=== PATIENT | male | born 1960 | race Asian ===

== ENCOUNTER 2017-03-07 08:37 | Day surgery (SDC) | payer OTHER ==
[2017-03-06 13:25] VITALS: BMI 23.7
[2017-03-07] MEDS ORDERED: PROPOFOL 20 ML ONE ×2 (11:14)
[2017-03-07 11:58] VITALS: TEMP 98
[2017-03-07 12:49] VITALS: BP 140/72; PULSE 67
--- NOTE | 2017-03-08 13:20 | PATH ---
Surgical Pathology Report Patient Name: VANDANA ROSS [facility]. Rec. #: [id number] /Age/Gender: 1960 (Age: 56) / M Account: [id number] Location: [facility]-ENDOSCOPY Taken: 03/07/2017 Received: 03/07/2017 Reported: 03/08/2017 Physicians: Yamil Brown M.D. Specimen(s) Received A: BX DISTAL TRANSVERSE COLON POLYP B: POLYP SIGMOID Clinical History History of colon polyp Diverticulosis, polyps Final Diagnosis A. COLON, DISTAL TRANSVERSE, POLYP, BIOPSY: POLYPOID FRAGMENT OF COLONIC MUCOSA WITH FOCAL SURFACE HYPERPLASTIC CHANGE. B. COLON, SIGMOID, POLYP, POLYPECTOMY: CONSISTENT WITH INFLAMMATORY-TYPE POLYP. NO DYSPLASIA/ADENOMA IDENTIFIED. Electronically Signed John Glynn M.D. Gross Description A. Received in formalin, labeled "biopsy distal transverse colon polyp" is a mcdaniel, irregular portion of soft tissue measuring 0.2 cm in greatest dimension. The specimen is submitted in toto in one cassette. B. Received in formalin, labeled "sigmoid polyp" are 3 mcdaniel, irregular portions of soft tissue measuring 0.2 cm in greatest dimension. The specimens are submitted in toto in one cassette. [facility]/03/07/2017 [facility]/03/07/2017
== END 2017-03-07 12:40 | disposition home or self-care (01) ==
LOC: JASU-ENDO 08:37
PROVIDERS: ATTEND Internal Medicine Gastroenterology
PROC: 0DBL8ZX Excision of Transverse Colon, Via Natural or Artificial Opening Endoscopic, Diagnostic (ICD-10-PCS; 2017-03-07)
PROC: 0DBN8ZX Excision of Sigmoid Colon, Via Natural or Artificial Opening Endoscopic, Diagnostic (ICD-10-PCS; principal; 2017-03-07 09:30)
DX: Z86.010 Personal history of colon polyps (principal); D12.5 Benign neoplasm of sigmoid colon; D12.3 Benign neoplasm of transverse colon
CPT/HCPCS: 88305-TC

== ENCOUNTER 2017-09-26 07:15 | Day surgery (SDC) | payer OTHER ==
[2017-09-25 14:36] VITALS: BMI 24.3
[2017-09-26 08:20] LABS: INR 0.92 (0.82-1.09); PROTHROMBIN TIME (PATIENT) 10.4 SEC (9.98-11.88)
[2017-09-26 08:23] LABS: BASO % 0.9 % (0-2.0); EOS % 4.4 % (0-4.5); HEMATOCRIT 38.1 % (35.4-49); HEMOGLOBIN 12.9 GM/dL (11.7-16.9); MEAN CELL VOLUME 79.4 fl (80-96); MEAN PLT VOLUME 8.9 fl (7.5-11.1); NEUT % 52.7 % (42.8-82.8); PLATELET COUNT 156 K/MM3 (134-434); RDW 15.2 % (11.9-15.9); WHITE BLOOD COUNT 5.8 K/mm3 (4.0-10.0)
[2017-09-26] MEDS ORDERED: ONDANSETRON 4 MG/2 ML VIAL ONE (15:58)
[2017-09-26] MEDS ORDERED: oxyCODONE HCL 5 MG TABLET ONE (16:15)
--- NOTE | 2017-09-26 17:35 | HP ---
CHIEF COMPLAINT: post renal biopsy hematoma Renal: Dr Branch HISTORY OF PRESENT ILLNESS: This is a 56 yo M with PMH of unexplained nephrotic syndrome, HTN and NIDDM2, who presents POD0 s/p L kidney biopsy de to hematoma. Patient currently complains of L flank pain 12/24, alleviated by recently administered percocet. he states his initial post op nausea resolved with zofran. he denies cp, dizziness, sob. He denies abd pain> he has no hisptory of bleeding or clotting d /o. he has not taken his daily asa for a week and takes no other a/c. Recent Travel: denies PAST MEDICAL HISTORY: as above PAST SURGICAL HISTORY: denies Social History: lives with Smoking: denies Alcohol:denies Drugs: denies Family History: denies hx of renal disease or bleeding d/o Allergies No Known Allergies Allergy (Verified 09/26/17 08:06) HOME MEDICATIONS: Home Medications Medication Instructions Recorded Amlodipine Besylate [Norvasc -] 10 mg PO DAILY 03/06/17 Aspirin [Aspirin EC] 81 mg PO DAILY 03/06/17 Carvedilol [Coreg -] 25 mg PO BID 03/06/17 Fenofibrate Nanocrystallized 145 mg PO DAILY 03/06/17 [Fenofibrate] Isosorbide Mononitrate [Isosorbide 30 mg PO DAILY 03/06/17 Mononitrate ER] Ergocalciferol (Vitamin D2) 2,000 unit PO DAILY 09/26/17 [Vitamin D2] Glyburide 5 mg PO DAILY 09/26/17 Linagliptin [Tradjenta] 5 mg PO DAILY 09/26/17 Losartan Potassium [Cozaar] 100 mg PO DAILY 09/26/17 [place]-3 Acid Ethyl Esters 1 gm PO DAILY 09/26/17 REVIEW OF SYSTEMS CONSTITUTIONAL: Absent: fever, chills, diaphoresis HEENT: Absent: rhinorrhea, nasal congestion, throat pain CARDIOVASCULAR: Absent: chest pain, syncope, palpitations, irregular heart rate, lightheadedness , peripheral edema RESPIRATORY: Absent: cough, shortness of breath GASTROINTESTINAL: Absent: abdominal pain, abdominal distension, vomiting, diarrhea, constipation, melena, hematochezia GENITOURINARY: Absent: dysuria MUSCULOSKELETAL: Absent: myalgia, arthralgia SKIN: Absent: rash, itching, pallor HEMATOLOGIC/IMMUNOLOGIC: Absent: easy bleeding, easy bruising ENDOCRINE: Absent: unexplained weight gain, unexplained weight loss NEUROLOGIC: Absent: headache, focal weakness or paresthesias PSYCHIATRIC: Absent: anxiety, depression PHYSICAL EXAMINATION Vital Signs - 24 hr 09/26/17 09/26/17 09/26/17 08:02 08:06 10:23 Temperature 98.1 F Pulse Rate 61 63 Pulse Rate [ Left Upper Arm] Respiratory 16 13 Rate Respiratory Rate [Left Upper Arm] Blood Pressure 143/83 176/96 Blood Pressure [Left Upper Arm ] O2 Sat by Pulse 99 100 Oximetry (%) O2 Sat by Pulse Oximetry (%) [ Left Upper Arm] 09/26/17 09/26/17 09/26/17 10:33 10:39 10:49 Temperature Pulse Rate 62 Pulse Rate [ 67 62 Left Upper Arm] Respiratory 14 Rate Respiratory 15 13 Rate [Left Upper Arm] Blood Pressure 159/93 Blood Pressure 149/94 149/94 [Left Upper Arm ] O2 Sat by Pulse 100 Oximetry (%) O2 Sat by Pulse 100 100 Oximetry (%) [ Left Upper Arm] 09/26/17 09/26/17 09/26/17 10:59 11:02 11:23 Temperature Pulse Rate 65 68 Pulse Rate [ 66 Left Upper Arm] Respiratory 15 16 Rate Respiratory 15 Rate [Left Upper Arm] Blood Pressure 139/88 150/100 Blood Pressure 127/83 [Left Upper Arm ] O2 Sat by Pulse 100 97 Oximetry (%) O2 Sat by Pulse 100 Oximetry (%) [ Left Upper Arm] 09/26/17 09/26/17 09/26/17 11:34 11:52 12:10 Temperature Pulse Rate 61 67 64 Pulse Rate [ Left Upper Arm] Respiratory 16 16 16 Rate Respiratory Rate [Left Upper Arm] Blood Pressure 146/86 147/93 141/86 Blood Pressure [Left Upper Arm ] O2 Sat by Pulse Oximetry (%) O2 Sat by Pulse Oximetry (%) [ Left Upper Arm] 09/26/17 09/26/17 09/26/17 12:14 12:43 14:06 Temperature Pulse Rate 64 61 72 Pulse Rate [ Left Upper Arm] Respiratory 16 16 16 Rate Respiratory Rate [Left Upper Arm] Blood Pressure 141/86 139/81 164/94 Blood Pressure [Left Upper Arm ] O2 Sat by Pulse 99 Oximetry (%) O2 Sat by Pulse Oximetry (%) [ Left Upper Arm] 09/26/17 09/26/17 09/26/17 14:10 14:22 14:42 Temperature Pulse Rate 72 70 70 Pulse Rate [ Left Upper Arm] Respiratory 16 16 16 Rate Respiratory Rate [Left Upper Arm] Blood Pressure 164/94 158/98 170/82 Blood Pressure [Left Upper Arm ] O2 Sat by Pulse Oximetry (%) O2 Sat by Pulse Oximetry (%) [ Left Upper Arm] 09/26/17 09/26/17 15:00 16:07 Temperature Pulse Rate 70 82 Pulse Rate [ Left Upper Arm] Respiratory 16 16 Rate Respiratory Rate [Left Upper Arm] Blood Pressure 170/82 154/98 Blood Pressure [Left Upper Arm ] O2 Sat by Pulse Oximetry (%) O2 Sat by Pulse Oximetry (%) [ Left Upper Arm] GENERAL: Awake, alert, and fully oriented, in no acute distress. HEAD: Normal with no signs of trauma. EYES: Pupils equal, round and reactive to light, extraocular movements intact, sclera anicteric, conjunctiva clear. No lid lag. EARS, NOSE, THROAT: Moist mucous membranes. NECK: supple without JVD LUNGS: Breath sounds equal, clear to auscultation bilaterally. HEART: Regular rate and rhythm, normal S1 and S2 without murmur, rub or gallop. ABDOMEN: Soft, nontender, mildly distended, normoactive bowel sounds, no guarding, no rebound, no masses. MUSCULOSKELETAL: L CVA tenderness. UPPER EXTREMITIES: 2+ pulses, warm, well-perfused. No cyanosis. No clubbing. No peripheral edema. LOWER EXTREMITIES: 2+ pulses, warm, well-perfused. No calf tenderness. No peripheral edema. NEUROLOGICAL: Cranial nerves II-XII grossly intact. Normal speech. PSYCHIATRIC: Cooperative. Good eye contact. Appropriate mood and affect. SKIN: Warm, dry Laboratory Results - last 24 hr 09/26/17 09/26/17 07:26 07:26 WBC 5.8 RBC 4.80 Hgb 12.9 Hct 38.1 MCV 79.4 L MCH 27.0 MCHC 34.0 RDW 15.2 Plt Count 156 MPV 8.9 Neutrophils % 52.7 Lymphocytes % 34.0 Monocytes % 8.0 Eosinophils % 4.4 Basophils % 0.9 PT with INR 10.40 INR 0.92 ASSESSMENT/PLAN: This is a 56 yo M with PMH of unexplained nephrotic syndrome, HTN and NIDDM2, who presents POD0 s/p L kidney biopsy de to hematoma. L retroperitoneal hematoma s/p L kidney biopsy -CBC 7 pm, 7 am -zofran prn for nausea -tylenol po, oxycodone po for pain management -renal consult Dr Branch HTN -resume losartan, imdur, coreg NIDDM -hold po meds -BGM, ISS Diabetic diet SCDs Dispo: obs m/s Problem List - Problem (1) Proteinuria Code(s): R80.9 - PROTEINURIA, UNSPECIFIED (2) Diabetes Code(s): E11.9 - TYPE 2 DIABETES MELLITUS WITHOUT COMPLICATIONS (3) HTN (hypertension) Code(s): I10 - ESSENTIAL (PRIMARY) HYPERTENSION (4) Hemorrhage following kidney biopsy Code(s): N99.820 - POSTPROC HEMOR OF A SYS ORG FOLLOWING A SYS PROCEDURE Visit type - Emergency Visit Emergency Visit: No - New Patient This patient is new to me today: Yes Date on this admission: 09/26/17 - Critical Care Critical Care patient: No
[2017-09-26] MEDS ORDERED: ACETAMINOPHEN 325 MG TABLET (FP) PO PRN (18:23)
[2017-09-26] MEDS ORDERED: oxyCODONE HCL 5 MG TABLET PO PRN (18:24)
[2017-09-26] MEDS ORDERED: ONDANSETRON 4 MG/2 ML VIAL IVPUSH PRN (18:25)
[2017-09-26] MEDS ORDERED: SODIUM CHLORIDE 1,000 ML IV SCH (18:30)
--- NOTE | 2017-09-26 19:07 | PN ---
Teaching Attending Note Name of Resident: Iris Aviles ATTENDING PHYSICIAN STATEMENT I saw and evaluated the patient. I reviewed the resident's note and discussed the case with the resident. I agree with the resident's findings and plan as documented. SUBJECTIVE: OBJECTIVE: Vital Signs Period Temp Pulse Resp BP Sys/Arcos Pulse Ox Last 24 Hr 98.1 F 61-82 13-16 127-176/81-100 97-100 Laboratory Tests 09/26/17 09/26/17 07:26 07:26 WBC 5.8 RBC 4.80 Hgb 12.9 Hct 38.1 MCV 79.4 L MCH 27.0 MCHC 34.0 RDW 15.2 Plt Count 156 MPV 8.9 Neutrophils % 52.7 Lymphocytes % 34.0 Monocytes % 8.0 Eosinophils % 4.4 Basophils % 0.9 PT with INR 10.40 INR 0.92 Home Medications Medication Instructions Recorded Amlodipine Besylate [Norvasc -] 10 mg PO DAILY 03/06/17 Aspirin [Aspirin EC] 81 mg PO DAILY 03/06/17 Carvedilol [Coreg -] 25 mg PO BID 03/06/17 Fenofibrate Nanocrystallized 145 mg PO DAILY 03/06/17 [Fenofibrate] Isosorbide Mononitrate [Isosorbide 30 mg PO DAILY 03/06/17 Mononitrate ER] Ergocalciferol (Vitamin D2) 2,000 unit PO DAILY 09/26/17 [Vitamin D2] Glyburide 5 mg PO DAILY 09/26/17 Linagliptin [Tradjenta] 5 mg PO DAILY 09/26/17 Losartan Potassium [Cozaar] 100 mg PO DAILY 09/26/17 [place]-3 Acid Ethyl Esters 1 gm PO DAILY 09/26/17 ASSESSMENT AND PLAN:
--- NOTE | 2017-09-26 19:37 | HP ---
CHIEF COMPLAINT: L retroperitoneal hematoma PCP: Dr. aMc Nephro: Dr. Logan HISTORY OF PRESENT ILLNESS: 56yo M with PMH signficant for NIDDM, HTN, and nephrotic syndrome of unclear etiology for past 2-3months who is POD0 s/p L renal biopsy c/b hematoma. Post- procedure patient developed non-radiating L flank pain with 6-7/10 intensity as well as nausea. His symptoms were resolved with Zofran and oxycodone. He is currently asymptomatic. Denies any fever, chills, dysuria, n/v, abdominal pain, or chest pain. Patient denies any history of prolonged bleeding or family history of bleeding diasthesis. Patient on home ASA, which he has not taken for past week. Recent Travel: none PAST MEDICAL HISTORY: NIDDM HTN PAST SURGICAL HISTORY: none Social History: Smoking: never Alcohol: denies Drugs: denies Family History: non-contributory Allergies: NKDA HOME MEDICATIONS: Home Medications Medication Instructions Recorded Amlodipine Besylate [Norvasc -] 10 mg PO DAILY 03/06/17 Aspirin [Aspirin EC] 81 mg PO DAILY 03/06/17 Carvedilol [Coreg -] 25 mg PO BID 03/06/17 Fenofibrate Nanocrystallized 145 mg PO DAILY 03/06/17 [Fenofibrate] Isosorbide Mononitrate [Isosorbide 30 mg PO DAILY 03/06/17 Mononitrate ER] Ergocalciferol (Vitamin D2) 2,000 unit PO DAILY 09/26/17 [Vitamin D2] Glyburide 5 mg PO DAILY 09/26/17 Linagliptin [Tradjenta] 5 mg PO DAILY 09/26/17 Losartan Potassium [Cozaar] 100 mg PO DAILY 09/26/17 [place]-3 Acid Ethyl Esters 1 gm PO DAILY 09/26/17 REVIEW OF SYSTEMS CONSTITUTIONAL: Absent: fever, chills, diaphoresis, generalized weakness, malaise, loss of appetite, weight change HEENT: Absent: rhinorrhea, nasal congestion, throat pain, throat swelling, difficulty swallowing, mouth swelling, ear pain, eye pain, visual changes CARDIOVASCULAR: Absent: chest pain, syncope, palpitations, irregular heart rate, lightheadedness , peripheral edema RESPIRATORY: Absent: cough, shortness of breath, dyspnea with exertion, orthopnea, wheezing, stridor, hemoptysis GASTROINTESTINAL: Absent: abdominal pain, abdominal distension, nausea, vomiting, diarrhea, constipation, melena, hematochezia GENITOURINARY: Absent: dysuria, frequency, urgency, hesitancy, hematuria, flank pain, genital pain MUSCULOSKELETAL: Absent: myalgia, arthralgia, joint swelling, back pain, neck pain SKIN: Absent: rash, itching, pallor HEMATOLOGIC/IMMUNOLOGIC: Absent: easy bleeding, easy bruising, lymphadenopathy, frequent infections ENDOCRINE: Absent: unexplained weight gain, unexplained weight loss, heat intolerance, cold intolerance NEUROLOGIC: Absent: headache, focal weakness or paresthesias, dizziness, unsteady gait, seizure, mental status changes, bladder or bowel incontinence PSYCHIATRIC: Absent: anxiety, depression, suicidal or homicidal ideation, hallucinations. PHYSICAL EXAMINATION Last Vital Signs Temp Pulse Resp BP Pulse Ox 98.1 F 82 16 154/98 99 09/26/17 08:02 09/26/17 16:07 09/26/17 18:18 09/26/17 16:07 09/26/17 18:18 GENERAL: pleasant, aaox3, lying comfortably in bed, in NAD HEAD: Normal with no signs of trauma. EYES: PERRL, EOMI, sclera anicteric, conjunctiva clear ENT:oropharynx clear without exudates, mmm NECK: supple, no cervical LAD LUNGS: CTAB HEART: rrr, normal s1/s2, no JVD ABDOMEN: Soft, NTND, normoactive BS : L flank bandage c/d/i, no CVA tenderness UPPER EXTREMITIES: 2+ radial pulses, warm, well-perfused. No cyanosis. No clubbing. No peripheral edema. LOWER EXTREMITIES: 2+ DP pulses, warm, well-perfused. No calf tenderness. No peripheral edema. NEUROLOGICAL: Cranial nerves II-XII intact. Normal speech. Gait not assessed Laboratory Results - last 24 hr 09/26/17 09/26/17 07:26 07:26 WBC 5.8 RBC 4.80 Hgb 12.9 Hct 38.1 MCV 79.4 L MCH 27.0 MCHC 34.0 RDW 15.2 Plt Count 156 MPV 8.9 Neutrophils % 52.7 Lymphocytes % 34.0 Monocytes % 8.0 Eosinophils % 4.4 Basophils % 0.9 PT with INR 10.40 INR 0.92 Active Medications Acetaminophen (Tylenol -) 650 mg PO Q4H PRN PRN Reason: PAIN LEVEL 1-5 Amlodipine Besylate (Norvasc -) 10 mg PO DAILY [facility] Carvedilol (Coreg -) 25 mg PO BID [facility] Cholecalciferol (Vitamin D3 -) 2,000 unit PO DAILY [facility] Fenofibric Acid (Trilipix -) 135 mg PO DAILY [facility] Glyburide (Diabeta -) 5 mg PO BIDAC [facility] Isosorbide Mononitrate (Imdur -) 30 mg PO DAILY [facility] Losartan Potassium (Losartan Potassium) 100 mg PO DAILY [facility] Non-Formulary Medication (Linagliptin [Tradjenta]) 5 mg PO HS [facility] [id number]-[id number] Ethyl Esters (Lovaza -) 2 gm PO BID [facility] Ondansetron HCl (Zofran Injection) 4 mg IVPUSH Q4H PRN PRN Reason: NAUSEA AND/OR VOMITING Oxycodone HCl (Roxicodone -) 10 mg PO Q4H PRN PRN Reason: PAIN LEVEL 6-10 ASSESSMENT/PLAN: 56yo M with PMH of NIDDM, HTN, and nephrotic syndrome of unknown etiology who is POD0 s/p renal biopsy and found to have to L retroperitoneal hematoma. #L renal hematoma s/p biopsy -Renal consult (Dr. Branch) -Serial H&H -UA in AM -Zofran PRN for nausea -Tylenol 650mg/Oxy 10mg Q4H PRN -Hold ASA #HTN - resume home meds #NIDDM - resume home meds -BGM, ISS ACHS #FEN: PO fluids / lytes wnl / Renal, DM diet #PPX: SCDs (AC c/i) #DISPO: obs m/s d/w Dr. Quentin Aviles MD PGY1 - Internal Medicine Visit type - Emergency Visit Emergency Visit: No - New Patient This patient is new to me today: Yes Date on this admission: 09/27/17 - Critical Care Critical Care patient: No Hospitalist Screening - Colonoscopy Questionnaire Colonoscopy Questionnaire: Colonoscopy Questionnaire - Patient: 50 - 75 years old and never had a screening colonoscopy: Yes History of colon or rectal polyps, or CA: Unknown History of IBD, Crohn's disease or UC: Unknown History of abdominal radiation therapy as a child: Unknown - Relative: 1 with colon or rectal CA, or polyps at age 60 or younger: Unknown Colon or rectal CA diagnosed at age 45 or younger: Unknown Multiple relatives with colon or rectal CA: Unknown - Outcome: Screening Result: Positive Screen
[2017-09-26 20:17] LABS: HEMATOCRIT 35.9 % (35.4-49); HEMOGLOBIN 12.5 GM/dL (11.7-16.9); MCH 27.6 pg (25.7-33.7); MEAN CELL VOLUME 78.8 fl (80-96); MEAN PLT VOLUME 8.9 fl (7.5-11.1); PLATELET COUNT 166 K/MM3 (134-434); RBC 4.55 M/mm3 (4.00-5.60); RDW 15.3 % (11.9-15.9); WHITE BLOOD COUNT 10.6 K/mm3 (4.0-10.0)
[2017-09-26] MEDS ORDERED: INSULIN (NOVOLOG) ASPART 100 UNITS/ML 10ML VIAL ONE (21:35)
[2017-09-26] MEDS: FENOFIBRIC ACID 135 MG CAP PO SCH (21:44)
[2017-09-26] MEDS: glyBURIDE 5 MG TABLET (UD) PO SCH (21:44)
[2017-09-26] MEDS: INSULIN SLIDING SCALE (NOVOLOG) 1 VIAL SQ SCH (21:44)
[2017-09-26] MEDS: amLODIPine BESYLATE 10 MG TABLET (FP) PO SCH (21:44)
[2017-09-26] MEDS: CARVEDILOL 25 MG TABLET (FP) PO SCH (21:44)
[2017-09-26] MEDS: OMEGA-3 ACID ETHYL ESTERS (FATTY-ACIDS) 1 GM CAPSULE (FP) PO SCH (21:44)
[2017-09-27] MEDS: INSULIN SLIDING SCALE (NOVOLOG) 1 VIAL SQ SCH ×2 (06:33→13:15)
[2017-09-27] MEDS: glyBURIDE 5 MG TABLET (UD) PO SCH (06:33)
[2017-09-27 07:09] LABS: URINE APPEARANCE CLEAR; URINE BILIRUBIN NEGATIVE (NEGATIVE); URINE BLOOD NEGATIVE (NEGATIVE); URINE COLOR LTYELLOW; URINE GLUCOSE (UA) 3+ (NEGATIVE); URINE KETONE NEGATIVE (NEGATIVE); URINE LEUK ESTERASE NEGATIVE (NEGATIVE); URINE NITRITE NEGATIVE (NEGATIVE); URINE UROBILINOGEN NEGATIVE mg/dL (0.2-1.0)
[2017-09-27 07:18] LABS: URINE PROTEIN 3+ (NEGATIVE)
[2017-09-27 07:24] LABS: EPI CELLS RARE /HPF (FEW); URINE HYALINE CAST 2 /lpf; URINE MUCUS RARE
[2017-09-27 07:56] LABS: ANION GAP 10 (8-16); BLOOD UREA NITROGEN 16 mg/dL (7-18); CALCIUM 7.5 mg/dL (8.5-10.1); CHLORIDE 102 mmol/L (98-107); CO2 27 mmol/L (21-32); CREATININE 2.1 mg/dL (0.7-1.3); GLUCOSE,RANDOM 169 mg/dL (74-106); POTASSIUM 3.1 mmol/L (3.5-5.1); SODIUM 139 mmol/L (136-145)
[2017-09-27] MEDS: CARVEDILOL 25 MG TABLET (FP) PO SCH (09:21)
[2017-09-27] MEDS: amLODIPine BESYLATE 10 MG TABLET (FP) PO SCH (09:23)
[2017-09-27] MEDS: OMEGA-3 ACID ETHYL ESTERS (FATTY-ACIDS) 1 GM CAPSULE (FP) PO SCH (09:29)
[2017-09-27] MEDS: FENOFIBRIC ACID 135 MG CAP PO SCH (09:29)
[2017-09-27] MEDS ORDERED: LOSARTAN POTASSIUM 50 MG TABLET (FP) PO SCH (10:00)
[2017-09-27] MEDS ORDERED: POTASSIUM CHLORIDE ORAL LIQUID 20 MEQ/15 ML PO SCH (10:00)
[2017-09-27] MEDS ORDERED: ISOSORBIDE MONONITRATE 30 MG TAB.SR.24H (FP) PO SCH (10:00)
[2017-09-27] MEDS ORDERED: CHOLECALCIFEROL (VITAMIN D3) 1,000 UNIT TABLET (FP) PO SCH (10:00)
[2017-09-27 11:09] VITALS: BP 153/80; PULSE 81; TEMP 98.7
[2017-09-27 11:23] LABS: HEMATOCRIT 32.4 % (35.4-49); HEMOGLOBIN 11.4 GM/dL (11.7-16.9); MCHC 35.1 g/dl (32.0-35.9); MEAN PLT VOLUME 8.4 fl (7.5-11.1); PLATELET COUNT 133 K/MM3 (134-434); RBC 4.05 M/mm3 (4.00-5.60); RDW 15.7 % (11.9-15.9); WHITE BLOOD COUNT 10.2 K/mm3 (4.0-10.0)
--- NOTE | 2017-09-27 12:05 | CONSULT ---
Consult - text type - Consultation Consultation Note: Renal Consult for CKD and post biopsy hematoma This is a 56 year old gentleman with PMhx of CKD, Hypertension, DM, Nephrotic range proteinuria s/p renal biopsy complicated by perinephric hematoma. Pt awake and alert. Denies any flank pain or gross hematuria. No N/V. NO fever, chills. No Abd pain. Feels well. Would like to go home. PMhx: as above [place]: NKDA Family Hx: NC Social Hx: No T/A/D ROS: As per HPI Home Medications Medication Instructions Recorded Amlodipine Besylate [Norvasc -] 10 mg PO DAILY 03/06/17 Aspirin [Aspirin EC] 81 mg PO DAILY 03/06/17 Carvedilol [Coreg -] 25 mg PO BID 03/06/17 Fenofibrate Nanocrystallized 145 mg PO DAILY 03/06/17 [Fenofibrate] Isosorbide Mononitrate [Isosorbide 30 mg PO DAILY 03/06/17 Mononitrate ER] Ergocalciferol (Vitamin D2) 2,000 unit PO DAILY 09/26/17 [Vitamin D2] Glyburide 5 mg PO DAILY 09/26/17 Linagliptin [Tradjenta] 5 mg PO DAILY 09/26/17 Losartan Potassium [Cozaar] 100 mg PO DAILY 09/26/17 [place]-3 Acid Ethyl Esters 1 gm PO DAILY 09/26/17 Vital Signs Temperature 98.7 F 09/27/17 09:00 Pulse Rate 81 09/27/17 09:00 Respiratory Rate 16 09/27/17 09:00 Blood Pressure 153/80 09/27/17 09:00 O2 Sat by Pulse Oximetry (%) 98 09/27/17 08:00 Intake & Output 09/24/17 09/25/17 09/26/17 09/27/17 23:59 23:59 23:59 23:59 Output Total 300 Balance -300 Weight 66.224 kg NAD awake and alert RRR CTA no LE edema no flank hematoma or tenderness CBC, BMP 09/27/17 06:20 09/27/17 06:20 Current Medications Acetaminophen (Tylenol -) 650 mg PO Q4H PRN PRN Reason: PAIN LEVEL 1-5 Last Admin: 09/27/17 09:54 Dose: 650 mg Amlodipine Besylate (Norvasc -) 10 mg PO DAILY [facility] Last Admin: 09/27/17 09:23 Dose: 10 mg Carvedilol (Coreg -) 25 mg PO BID [facility] Last Admin: 09/27/17 09:21 Dose: 25 mg Cholecalciferol (Vitamin D3 -) 2,000 unit PO DAILY [facility] Last Admin: 09/27/17 09:21 Dose: 2,000 unit Fenofibric Acid (Trilipix -) 135 mg PO DAILY [facility] Last Admin: 09/27/17 09:29 Dose: 135 mg [facility]ab[facility] -) [facility] Admin: 09/27/17 06:33 Dose: 5 mg Insulin Aspart (Novolog Vial Sliding Scale -) 1 vial SQ ACHS [facility] PRN Reason: Protocol Last Admin: 09/27/17 06:33 Dose: 2 units Isosorbide Mononitrate (Imdur -) 30 mg PO DAILY [facility] Last Admin: 09/27/17 09:23 Dose: 30 mg Losartan Potassium (Cozaar -) 100 mg PO DAILY [facility] Last Admin: 09/27/17 09:22 Dose: 100 mg Hrolw-0-Ogvw Ethyl Esters (Lovaza -) 2 gm PO BID [facility] Last Admin: 09/27/17 09:29 Dose: 2 gm Ondansetron HCl (Zofran Injection) 4 mg IVPUSH Q4H PRN PRN Reason: NAUSEA AND/OR VOMITING Oxycodone HCl (Roxicodone -) 10 mg PO Q4H PRN PRN Reason: PAIN LEVEL 6-10 Last Admin: 09/27/17 09:53 Dose: 10 mg Potassium Chloride (Potassium Chloride Oral Liquid) 40 meq PO BID [facility] Last Admin: 09/27/17 09:50 Dose: 40 meq Sitagliptin Phosphate (Januvia -) 100 mg PO HS [facility] 56 year old gentleman with PMhx of CKD, Hypertension, DM, Nephrotic range proteinuria s/p renal biopsy complicated by perinephric hematoma. #Post-biopsy hematoma Hgb noted to have slight down-trend but pt w/o any flank pain or hematuria Case discussed with IR, no additional imaging studies needed at this time advised pt and family to withhold ASA for 7 days continue supportive care #CKD with Proteinuria will follow up biopsy results Renal function stable Continue Losartan avoid NSIADs as other nephrotoxins Thank you Stable for discharge Jovanni Branch DO
--- NOTE | 2017-09-27 13:14 | DS ---
Physical Exam: SUBJECTIVE: Patient seen and examined OBJECTIVE: Vital Signs Period Temp Pulse Resp BP Sys/Arcos Pulse Ox Last 24 Hr 98.2 F-99.0 F 70-85 16-20 131-172/70-102 97-99 PHYSICAL EXAM GENERAL: The patient is awake, alert, and fully oriented, in no acute distress. HEAD: Normal with no signs of trauma. EYES: PERRL, extraocular movements intact, sclera anicteric, conjunctiva clear. ENT: Ears normal, nares patent, oropharynx clear without exudates, moist mucous membranes. NECK: Trachea midline, full range of motion, supple. LUNGS: Breath sounds equal, clear to auscultation bilaterally, no wheezes, no crackles, no accessory muscle use. HEART: Regular rate and rhythm, S1, S2 without murmur, rub or gallop. ABDOMEN: Soft, nontender, nondistended, normoactive bowel sounds, no guarding, no rebound, no hepatosplenomegaly, no masses. EXTREMITIES: 2+ pulses, warm, well-perfused, no edema. NEUROLOGICAL: Cranial nerves II through XII grossly intact. Normal speech, gait not observed. PSYCH: Normal mood, normal affect. SKIN: Warm, dry, normal turgor, no rashes or lesions noted. LABS Laboratory Results - last 24 hr 09/26/17 09/26/17 09/27/17 19:00 21:23 05:50 WBC 10.6 H D RBC 4.55 Hgb 12.5 Hct 35.9 MCV 78.8 L MCH 27.6 MCHC 35.0 RDW 15.3 Plt Count 166 MPV 8.9 Sodium Potassium Chloride Carbon Dioxide Anion Gap BUN Creatinine POC Glucometer 212 184 Random Glucose Calcium Urine Color Urine Appearance Urine pH Ur Specific [place] Urine Protein Urine Glucose (UA) Urine Ketones Urine Blood Urine Nitrite Urine Bilirubin Urine Urobilinogen Ur Leukocyte Esterase Urine WBC (Auto) Urine RBC (Auto) Ur Epithelial Cells Hyaline Casts Urine Mucus 09/27/17 09/27/17 09/27/17 06:20 06:20 06:30 WBC 10.2 H RBC 4.05 Hgb 11.4 L Hct 32.4 L MCV 80.0 MCH 28.0 MCHC 35.1 RDW 15.7 Plt Count 133 L MPV 8.4 Sodium 139 Potassium 3.1 L Chloride 102 Carbon Dioxide 27 Anion Gap 10 BUN 16 Creatinine 2.1 H POC Glucometer Random Glucose 169 H Calcium 7.5 L Urine Color Ltyellow Urine Appearance Clear Urine pH 6.0 Ur Specific [place] 1.010 Urine Protein 3+ H Urine Glucose (UA) 3+ H Urine Ketones Negative Urine Blood Negative Urine Nitrite Negative Urine Bilirubin Negative Urine Urobilinogen Negative Ur Leukocyte Esterase Negative Urine WBC (Auto) <1 Urine RBC (Auto) 2 Ur Epithelial Cells Rare Hyaline Casts 2 Urine Mucus Rare HOSPITAL COURSE: Date of Admission:09/26/17 Date of Discharge: 09/27/17 Discharge Summary Reason For Visit: PROTEINURIA Current Active Problems Diabetes (Acute) HTN (hypertension) (Acute) Hemorrhage following kidney biopsy (Acute) Proteinuria (Acute) Condition: Improved - Instructions Diet, Activity, Other Instructions: Recommendations: -Remove left flank dressing tomorrow afternoon, 09/27 (48 hours after procedure) -You may resume your regular daily activities. Medications: Resume your daily Aspirin 81mg on Monday, October 06. Until then avoid medications that contain aspirin. You may resume all of your other regular home medications. Follow-ups: -Make an appointment to see Dr. Logan within 1-2 weeks. -Follow up with Dr. Sanz (Interventional Radiologist). If you develop signs of internal bleeding (flank or abdominal pain) nausea, vomiting, weakness, lightheadedness, sweating or palpitations, go to the emergency room. Referrals: Gaurang Fernandes MD [Staff Physician] - Karime Hadley MD [Staff Physician] - Disposition: HOME - Home Medications Comprehensive Discharge Medication List: Ambulatory Orders Amlodipine Besylate [Norvasc -] 10 mg PO DAILY 03/06/17 Carvedilol [Coreg -] 25 mg PO BID 03/06/17 Fenofibrate Nanocrystallized [Fenofibrate] 145 mg PO DAILY 03/06/17 Isosorbide Mononitrate [Isosorbide Mononitrate ER] 30 mg PO DAILY 03/06/17 Ergocalciferol (Vitamin D2) [Vitamin D2] 2,000 unit PO DAILY 09/26/17 Glyburide 5 mg PO DAILY 09/26/17 Linagliptin [Tradjenta] 5 mg PO DAILY 09/26/17 Losartan Potassium [Cozaar] 100 mg PO DAILY 09/26/17 [place]-3 Acid Ethyl Esters 1 gm PO DAILY 09/26/17 Aspirin [Aspirin EC] 81 mg PO DAILY #0 tab.ec 09/27/17
--- NOTE | 2017-09-27 13:17 | PN ---
Teaching Attending Note Name of Resident: Iris Aviles ATTENDING PHYSICIAN STATEMENT I saw and evaluated the patient. I reviewed the resident's note and discussed the case with the resident. I agree with the resident's findings and plan as documented. SUBJECTIVE: OBJECTIVE: Vital Signs Period Temp Pulse Resp BP Sys/Arcos Pulse Ox Last 24 Hr 98.2 F-99.0 F 70-85 16-20 131-172/70-102 97-99 Laboratory Results - last 24 hr 09/26/17 09/26/17 09/27/17 19:00 21:23 05:50 WBC 10.6 H D RBC 4.55 Hgb 12.5 Hct 35.9 MCV 78.8 L MCH 27.6 MCHC 35.0 RDW 15.3 Plt Count 166 MPV 8.9 Sodium Potassium Chloride Carbon Dioxide Anion Gap BUN Creatinine POC Glucometer 212 184 Random Glucose Calcium Urine Color Urine Appearance Urine pH Ur Specific [place] Urine Protein Urine Glucose (UA) Urine Ketones Urine Blood Urine Nitrite Urine Bilirubin Urine Urobilinogen Ur Leukocyte Esterase Urine WBC (Auto) Urine RBC (Auto) Ur Epithelial Cells Hyaline Casts Urine Mucus 09/27/17 09/27/17 09/27/17 06:20 06:20 06:30 WBC 10.2 H RBC 4.05 Hgb 11.4 L Hct 32.4 L MCV 80.0 MCH 28.0 MCHC 35.1 RDW 15.7 Plt Count 133 L MPV 8.4 Sodium 139 Potassium 3.1 L Chloride 102 Carbon Dioxide 27 Anion Gap 10 BUN 16 Creatinine 2.1 H POC Glucometer Random Glucose 169 H Calcium 7.5 L Urine Color Ltyellow Urine Appearance Clear Urine pH 6.0 Ur Specific [place] 1.010 Urine Protein 3+ H Urine Glucose (UA) 3+ H Urine Ketones Negative Urine Blood Negative Urine Nitrite Negative Urine Bilirubin Negative Urine Urobilinogen Negative Ur Leukocyte Esterase Negative Urine WBC (Auto) <1 Urine RBC (Auto) 2 Ur Epithelial Cells Rare Hyaline Casts 2 Urine Mucus Rare Current Medications Generic Name Dose Route Start Last Admin Trade Name Freq PRN Reason Stop Dose Admin Acetaminophen 650 mg 09/26/17 18:23 09/27/17 09:54 Tylenol - PO 650 mg Q4H PRN Administration PAIN LEVEL 1-5 Amlodipine Besylate 10 mg 09/26/17 22:00 09/27/17 09:23 Norvasc - PO 10 mg DAILY [facility] Administration Carvedilol 25 mg 09/26/17 22:00 09/27/17 09:21 Coreg - PO 25 mg BID [facility] Administration Cholecalciferol 2,000 unit 09/27/17 10:00 09/27/17 09:21 Vitamin D3 - PO 2,000 unit DAILY [facility] Administration Fenofibric Acid 135 mg 09/26/17 20:00 09/27/17 09:29 Trilipix - PO 135 mg DAILY [facility] Administration Glyburide 5 mg 09/26/17 20:00 09/27/17 06:33 Diabeta - PO 5 mg BIDAC [facility] Administration Insulin Aspart 1 vial 09/26/17 22:00 09/27/17 13:15 Novolog Vial Sliding Scale - SQ Not Given ACHS [facility] Protocol Isosorbide Mononitrate 30 mg 09/27/17 10:00 09/27/17 09:23 Imdur - PO 30 mg DAILY [facility] Administration Losartan Potassium 100 mg 09/27/17 10:00 09/27/17 09:22 Cozaar - PO 100 mg DAILY [facility] Administration Fuqam-7-Oplc Ethyl Esters 2 gm 09/26/17 22:00 09/27/17 09:29 Lovaza - PO 2 gm BID [facility] Administration Ondansetron HCl 4 mg 09/26/17 18:25 Zofran Injection IVPUSH Q4H PRN NAUSEA AND/OR VOMITING Oxycodone HCl 10 mg 09/26/17 18:24 09/27/17 09:53 Roxicodone - PO 10 mg Q4H PRN Administration PAIN LEVEL 6-10 Potassium Chloride 40 meq 09/27/17 10:00 09/27/17 09:50 Potassium Chloride Oral Liquid PO 40 meq BID [facility] Administration Sitagliptin Phosphate 100 mg 09/27/17 22:00 Januvia - PO [facility] ASSESSMENT AND PLAN:
[2017-09-27] MEDS ORDERED: sitaGLIPtin PHOSPHATE 50 MG TABLET PO SCH (22:00)
--- NOTE | 2017-10-11 16:29 | PATH ---
Surgical Pathology Report Patient Name: VANDANA ROSS [facility]. Rec. #: [id number] /Age/Gender: 1960 (Age: 56) / M Account: [id number] Location: [facility] MED/SURG Taken: 09/26/2017 Received: 09/26/2017 Reported: 10/11/2017 Physicians: Ina Arvizu M.D. Specimen(s) Received RENAL BIOPSY Clinical History Stage III CKD Intraoperative Consult Diagnosis Left renal biopsy, gross examination: Glomeruli present. Aleena Sprague M.D., 09/26/17 Final Diagnosis KIDNEY, BIOPSY: DIFFUSE SCLEROSING GLOMERULONEPHRITIS, CONSISTENT WITH IGA NEPHROPATHY (NO ACTIVITY, MODERATE CHRONICITY). TUBULAR ATROPHY AND INTERSTITIAL FIBROSIS, AT LEAST MILD. ARTERIO-AND ARTERIOLOSCLEROSIS, MODERATE TO SEVERE. SEE COMMENT. Comment: Interpretation of this biopsy is limited by the small cortical sample for light microscopy. The immunofluorescence findings of 1-2+ glomerular global mesangial staining for IgA, trace IgG, 1+ IgM, 1+ kappa and 1-2+ lambda, support the diagnosis of IgA nephropathy. The presence of severe vascular disease suggests that hypertension may have also contributed to the glomerulosclerosis. 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 By the [place] classification of IgA nephropathy, the findings present would be classified as " M0 E0 S1 T1 C0", where M= mesangial hypercellularity, E= endocapillary proliferation, S= segmental sclerosis, T= tubular atrophy/interstitial fibrosis, and C= cellular/fibrocellular crescents. According to the scoring system, M1, E1 and S1 each indicate an increased risk of renal function deterioration. T1 and T2 indicate progressively greater risk of renal function decline, and the strongest independent predictor of poor outcome. The negative in E1 and C1 may be mitigated by immunosuppressive therapy. C2 indicates increased risk of poor outcome even with immunosuppression. Case sent for consultation to Dr. Christian Kathleen from [place], [place] ([id number]), the diagnosis above reflects his opinion. See complete report ([id number]) from [place], [place] for additional details. Electronically Signed Marylin Dawson.D. Gross Description Received in saline labeled "left renal biopsy," is a 1.6 cm in length x 0.1 cm diameter mcdaniel, cylindrical portion of soft tissue. An intraoperative gross examination is performed. The specimen is divided, placed into 10% buffered formalin, Oleg fixative and glutaraldehyde. The specimen is sent to [facility] for further studies. 09/26/201709/26/2017
== END 2017-09-27 13:28 | disposition home or self-care (01) ==
LOC: SUATTDRO 07:15 → JRADIR 07:15 → J8W 17:30 → JRADIR 09-27 13:28
PROVIDERS: ATTEND Internal Medicine
PROC: 0TB13ZX Excision of Left Kidney, Percutaneous Approach, Diagnostic (ICD-10-PCS; principal; 2017-09-26)
PROC: BT41ZZZ Ultrasonography of Right Kidney (ICD-10-PCS; 2017-09-26)
DX: N28.9 Disorder of kidney and ureter, unspecified (principal)
CPT/HCPCS: 36415; 50200; 76775-TC; 76942-TC; 80048; 81003; 81015; 82962; 85025; 85027; 85610; 88300-TC; 88329

== ENCOUNTER 2020-05-29 04:45 | Day surgery (SDC) | payer OTHER ==
[2020-05-28 15:29] VITALS: BMI 25.7
[2020-05-29] MEDS ORDERED: ceFAZolin SODIUM 1 GM VIAL IVPB ONE (13:25)
[2020-05-29] MEDS ORDERED: MIDAZOLAM HCL 2 MG/2 ML SINGLE DOSE VIAL ONE (14:36)
[2020-05-29] MEDS ORDERED: ROCURONIUM BROMIDE 100 MG/10 ML VIAL ONE (14:39)
[2020-05-29] MEDS ORDERED: DEXAMETHASONE SOD PHOSPHATE 4 MG/1 ML VIAL ONE (14:39)
[2020-05-29] MEDS ORDERED: PROPOFOL 20 ML ONE ×2 (14:39)
[2020-05-29] MEDS ORDERED: LIDOCAINE HCL/PF 2% SDV 5ML VIAL ONE ×2 (14:39→15:23)
[2020-05-29] MEDS ORDERED: BUPIVACAINE HCL 100 ML ONE (14:53)
[2020-05-29] MEDS ORDERED: ceFAZolin SODIUM 1 GM VIAL ONE (15:23)
[2020-05-29] MEDS ORDERED: NEOSTIGMINE METHYLSULFATE 0.5 MG/ML - 10 ML MDV ONE (15:50)
[2020-05-29] MEDS ORDERED: ONDANSETRON 4 MG/2 ML VIAL IVPUSH PRN (16:55)
[2020-05-29] MEDS ORDERED: oxyCODONE HCL 5 MG TABLET PO PRN (16:55)
[2020-05-29] MEDS ORDERED: LACTATED RINGERS SOLUTION 1,000 ML IV SCH (17:00)
[2020-05-29] MEDS ORDERED: ONDANSETRON 4 MG/2 ML VIAL ONE (17:33)
[2020-05-29 19:21] VITALS: BP 146/68; PULSE 68; TEMP 97.3
== END 2020-05-29 19:10 | disposition home or self-care (01) ==
LOC: JASU-SURG 04:45
PROVIDERS: ATTEND Surgery
PROC: 0WHG43Z Insertion of Infusion Device into Peritoneal Cavity, Percutaneous Endoscopic Approach (ICD-10-PCS; principal; 2020-05-29 15:00)
DX: I12.0 Hypertensive chronic kidney disease with stage 5 chronic kidney disease or end stage renal disease (principal); N18.6 End stage renal disease; Z99.2 Dependence on renal dialysis
CPT/HCPCS: 82962; 94760; J1644